=== PATIENT | male | born 1935 | race African-American/Black ===

== ENCOUNTER 2018-02-01 22:51 | Emergency (ER) | payer OTHER ==
[2018-02-01 23:32] VITALS: BP 152/75; PULSE 73; TEMP 98.2; BMI 27.2
--- NOTE | 2018-02-02 00:02 | PDOC ---
History of Present Illness - General History Source: Patient Exam Limitations: No Limitations - History of Present Illness Initial Comments: 02/02/18 00:11 The patient is an 82 year old male with a significant PMH of umbilical and inguinal hernias, HTN, diabetes, and hyperlipidemia who presents to the emergency department with abdominal pain and constipation beginning approximately 3 days ago. The patient notes his abdominal pain is diffuse with associated bloating and that he has not had a BM in 3 days. He also reports a minimal appetite with his symptoms. The patient denies recent travel or sick contacts. He denies chest pain or shortness of breath. The patient denies headache and dizziness. Denies fevers, chills, nausea, vomit, and diarrhea. Denies dysuria, frequency, urgency, and hematuria. <Amos Smith - Last Filed: 02/02/18 00:40> - General History Source: Patient <Reed Pedraza - Last Filed: 02/02/18 19:30> - General Chief Complaint: Pain Stated Complaint: PAIN Time Seen by Provider: 02/02/18 00:00 Past History <Amos Smith - Last Filed: 02/02/18 00:40> - Past Medical History COPD: No Diabetes: Yes GI Disorders: Yes (gerd) HTN: Yes Hypercholesterolemia: Yes - Surgical History Abdominal Surgery: Yes (HERNIA) - Immunization History Immunization Up to Date: Yes - Suicide/Smoking/Psychosocial Hx Smoking History: Former smoker Have you smoked in the past 12 months: No Information on smoking cessation initiated: No Hx Alcohol Use: No Drug/Substance Use Hx: No Substance Use Type: None <Reed Pedraza - Last Filed: 02/02/18 19:30> - Past Medical History Allergies/Adverse Reactions: Allergies Allergy/AdvReac Type Severity Reaction Status Date / Time lisinopril Allergy Severe FACE Verified 02/01/18 23:32 SWELLING Home Medications: Ambulatory Orders Aspirin [ASA -] 81 mg PO DAILY 11/07/13 Esomeprazole Mag Trihydrate [Nexium] 40 mg PO DAILY 11/07/13 Losartan Potassium [Cozaar -] 25 mg PO DAILY 11/07/13 Metoprolol Tartrate [Lopressor -] 50 mg PO DAILY 11/07/13 Simvastatin [Zocor] 80 mg PO DAILY 11/07/13 metFORMIN HCL [Glucophage -] 100 mg PO DAILY 11/07/13 Review of Systems - Review of Systems Able to Perform ROS?: Yes Comments:: 02/02/18 00:12 CONSTITUTIONAL: Absent: fever, chills, diaphoresis, generalized weakness, malaise, loss of appetite HEENT: Absent: rhinorrhea, nasal congestion, throat pain, throat swelling, difficulty swallowing, mouth swelling, ear pain, eye pain, visual Changes CARDIOVASCULAR: Absent: chest pain, syncope, palpitations, irregular heart rate, lightheadedness , peripheral edema RESPIRATORY: Absent: cough, shortness of breath, dyspnea with exertion, orthopnea, wheezing, stridor, hemoptysis GASTROINTESTINAL: (+) Diffuse abdominal pain. (+) Abdominal bloating. (+) Constipation. Absent:, nausea, vomiting, diarrhea, melena, hematochezia GENITOURINARY: Absent: dysuria, frequency, urgency, hesitancy, hematuria, flank pain, genital pain MUSCULOSKELETAL: Absent: myalgia, arthralgia, joint swelling SKIN: Absent: rash, itching, pallor HEMATOLOGIC/IMMUNOLOGIC: Absent: easy bleeding, easy bruising, lymphadenopathy, frequent infections ENDOCRINE: Absent: unexplained weight gain, unexplained weight loss, heat intolerance, cold intolerance NEUROLOGIC: Absent: headache, focal weakness or paresthesias, dizziness, unsteady gait, seizure, mental status changes, bladder or bowel incontinence PSYCHIATRIC: Absent: anxiety, depression, suicidal or homicidal ideation, hallucinations. <Amos Smith - Last Filed: 02/02/18 00:40> *Physical Exam - Vital Signs Last Vital Signs Temp Pulse Resp BP Pulse Ox 98.2 F 73 19 152/75 98 02/01/18 23:20 02/01/18 23:20 02/01/18 23:20 02/01/18 23:20 02/01/18 23:20 - Physical Exam Comments: 02/02/18 00:12 GENERAL: Well developed, well nourished. Awake and alert. No acute distress. HEENT: Normocephalic, atraumatic. PERRLA, EOMI. No conjunctival pallor. Sclera are non- icteric. Moist mucous membranes. Oropharynx is clear. NECK: Supple. Full ROM. No JVD. Carotid pulses 2+ and symmetric, without bruits. No thyromegaly. No lymphadenopathy. CARDIOVASCULAR: Regular rate and rhythm. No murmurs, rubs, or gallops. Distal pulses are 2+ and symmetric. PULMONARY: No evidence of respiratory distress. Lungs clear to auscultation bilaterally. No wheezing, rales or rhonchi. ABDOMINAL: Soft. Non-tender. Non-distended. No rebound or guarding. No organomegaly. Normoactive bowel sounds. MUSCULOSKELETAL Normal range of motion at all joints. No bony deformities or tenderness. No CVA tenderness. EXTREMITIES: No cyanosis. No clubbing. No edema. No calf tenderness. SKIN: Warm and dry. Normal capillary refill. No rashes. No jaundice. NEUROLOGICAL: Alert, awake, appropriate. Cranial nerves 2-12 intact. No deficits to light touch and temperature in face, upper extremities and lower extremities. No motor deficits in the in face, upper extremities and lower extremities. Normoreflexic in the upper and lower extremities. Normal speech. Toes are downgoing bilaterally. Gait is normal without ataxia. PSYCHIATRIC: Cooperative. Good eye contact. Appropriate mood and affect. <Amos Smith - Last Filed: 02/02/18 00:40> - Vital Signs Last Vital Signs Temp Pulse Resp BP Pulse Ox 98.2 F 73 19 152/75 98 02/01/18 23:20 02/01/18 23:20 02/01/18 23:20 02/01/18 23:20 02/01/18 23:20 <Reed Pedraza - Last Filed: 02/02/18 19:30> Heart Score/ECG Review #1 02/02/18 00:40 Vent rate 66 bpm Normal sinus rhythm Normal ECG <Amos Smith - Last Filed: 02/02/18 00:40> ED Treatment Course - LABORATORY CBC & Chemistry Diagram: 02/02/18 00:52 02/02/18 00:52 <Reed Pedraza - Last Filed: 02/02/18 19:30> Medical Decision Making - Medical Decision Making 02/02/18 19:30 Dr. Pedraza: The scribe's documentation has been prepared under my direction and personally reviewed by me in its entirery. I confirm that the note above accurately reflects all work, treatment, procedures, and medical decision making performed by me. <Reed Pedraza - Last Filed: 02/02/18 19:30> *DC/Admit/Observation/Transfer - Attestations Scribe Attestion: 02/02/18 00:12 Documentation prepared by Amos Smith, acting as durable medical equipment technician for Reed Pedraza DO. <Amos Smith - Last Filed: 02/02/18 00:40> - Discharge Dispostion Admit: No <Reed Pedraza - Last Filed: 02/02/18 19:30> Diagnosis at time of Disposition: Constipation Qualifiers: Constipation type: other constipation type Qualified Code(s): K59.09 - Other constipation - Discharge Dispostion Disposition: HOME Condition at time of disposition: Stable - Referrals Referrals: Gareth Savage MD [Primary Care Provider] - - Patient Instructions Printed Discharge Instructions: Increased Dietary Fiber May Improve Constipation Conditions With Pelvic Ori, DI for Constipation Additional Instructions: drink plenty of fluids. Purchase and use Fleet enema periodically to help pass stool. Follow up with your doctor
[2018-02-02] MEDS ORDERED: SODIUM CHLORIDE 1,000 ML IV STA (00:03)
[2018-02-02 01:12] LABS: BASO % 1.4 % (0-2.0); EOS % 6.9 % (0-4.5); HEMATOCRIT 39.5 % (35.4-49); HEMOGLOBIN 13.4 GM/dL (11.7-16.9); MCH 28.3 pg (25.7-33.7); MCHC 34.1 g/dl (32.0-35.9); MEAN CELL VOLUME 82.9 fl (80-96); MEAN PLT VOLUME 8.4 fl (7.5-11.1); MONO % 8.6 % (3.8-10.2); NEUT % 38.1 % (42.8-82.8); PLATELET COUNT 222 K/MM3 (134-434); RBC 4.76 M/mm3 (4.00-5.60); RDW 15.2 % (11.9-15.9); WHITE BLOOD COUNT 6.2 K/mm3 (4.0-10.0)
[2018-02-02 01:33] LABS: ANION GAP 12 (8-16); BLOOD UREA NITROGEN 14 mg/dL (7-18); CALCIUM 8.8 mg/dL (8.5-10.1); CHLORIDE 102 mmol/L (98-107); CO2 23 mmol/L (21-32); GLUCOSE,RANDOM 95 mg/dL (74-106); MAGNESIUM 2.2 mg/dL (1.8-2.4); POTASSIUM 4.1 mmol/L (3.5-5.1); SGOT/AST 19 U/L (15-37); SGPT/ALT 22 U/L (12-78); SODIUM 137 mmol/L (136-145)
[2018-02-02 01:34] LABS: N-TERMINAL BNP 45.64 pg/ml (5-450)
[2018-02-02 01:37] LABS: INR 1.03 (0.82-1.09); PROTHROMBIN TIME (PATIENT) 11.6 SEC (9.98-11.88)
[2018-02-02 01:38] LABS: ALK PHOS 77 U/L (45-117); BILIRUBIN,TOTAL 0.7 mg/dL (0.2-1.0)
[2018-02-02] MEDS ORDERED: LACTULOSE 20 GM/30 ML UDC (FOR ORAL USE ONLY) PO ONE (01:41)
[2018-02-02] MEDS ORDERED: LACTULOSE 20 GM/30 ML UDC (FOR ORAL USE ONLY) ONE (01:52)
--- NOTE | 2018-02-02 16:38 | EKG ---
Test Reason : Blood Pressure : / mmHG Vent. Rate : 066 BPM Atrial Rate : 066 BPM P-R Int : 174 ms QRS Dur : 094 ms QT Int : 394 ms P-R-T Axes : 080 -28 -05 degrees QTc Int : 413 ms NORMAL SINUS RHYTHM NORMAL ECG WHEN COMPARED WITH ECG OF 06-JAN-2016 13:20, NO SIGNIFICANT CHANGE WAS FOUND Confirmed by SERGIO WYNN MD ([id number]) on 02/02/2018 4:38:34 PM Referred By: Confirmed By:SERGIO WYNN MD
== END 2018-02-02 01:55 | disposition home or self-care (01) ==
LOC: JER 22:51
DX: K59.09 Other constipation (principal); E11.9 Type 2 diabetes mellitus without complications; I10 Essential (primary) hypertension; E78.00 Pure hypercholesterolemia, unspecified; K21.9 Gastro-esophageal reflux disease without esophagitis
CPT/HCPCS: 36415; 74019-TC-FY; 80053; 82550; 83690; 83735; 83880; 84484; 85025; 85610; 93005; 93010; 99281-25

== ENCOUNTER 2020-06-03 10:37 | Emergency (ER) | payer OTHER ==
--- NOTE | 2020-06-03 10:48 | PDOC ---
History of Present Illness - General Chief Complaint: Urinary Problem Stated Complaint: Urinary Problem Time Seen by Provider: 06/03/20 10:41 History Source: Patient - History of Present Illness Initial Comments: 84 YOM h/o HTN and diabetes presents with complaints of decreased frequency and duration of urination. Patient reports that he normally urinates 3 times per day and 3 times per night, observing "heavy flow". However since 3 days ago, he is unable to urinate more than 5 seconds at a time, sometimes experiencing dribbling and when he wakes up at night to use the bathroom, he produces little if any urine. He also mentions some minor abdominal pain in the LRQ which is exacerbated with attempting to urine as well as some minor burning sensation that accompanies urinating. He denies discharge, increased urge to urinate, or a feeling of a persistently full bladder. He also denies fever, chills, N/V/D, CP or SOB. Past History - Medical History Allergies/Adverse Reactions: Allergies Allergy/AdvReac Type Severity Reaction Status Date / Time lisinopril Allergy Severe FACE Verified 02/01/18 23:32 SWELLING Home Medications: Ambulatory Orders Aspirin [ASA -] 81 mg PO DAILY 11/07/13 Esomeprazole Mag Trihydrate [Nexium] 40 mg PO DAILY 11/07/13 Losartan Potassium [Cozaar -] 25 mg PO DAILY 11/07/13 Metoprolol Tartrate [Lopressor -] 50 mg PO DAILY 11/07/13 Simvastatin [Zocor] 80 mg PO DAILY 11/07/13 metFORMIN HCL [Glucophage -] 100 mg PO DAILY 11/07/13 COPD: No Diabetes: Yes GI Disorders: Yes (gerd) HTN: Yes Hypercholesterolemia: Yes - Surgical History Abdominal Surgery: Yes (HERNIA) - Immunization History Immunization Up to Date: Yes - Psycho-Social/Smoking History Smoking History: Former smoker Have you smoked in the past 12 months: No Review of Systems - Review of Systems Constitutional: Yes: See HPI HEENTM: Yes: See HPI, Difficulty Swallowing Cardiac (ROS): Yes: See HPI ABD/GI: Yes: See HPI : Yes: See HPI Musculoskeletal: Yes: See HPI Integumentary: Yes: See HPI Neurological: Yes: See HPI Endocrine: Yes: See HPI Hematologic/Lymphatic: Yes: See HPI *Physical Exam - Vital Signs Last Vital Signs Temp Pulse Resp BP Pulse Ox 97.2 F L 72 17 145/70 99 06/03/20 10:45 06/03/20 10:45 06/03/20 10:45 06/03/20 10:45 06/03/20 10:45 - Physical Exam General Appearance: Yes: Nourished, Appropriately Dressed Respiratory/Chest: positive: Lungs Clear, Normal Breath Sounds Cardiovascular: positive: Regular Rhythm, Regular Rate, S1, S2 Gastrointestinal/Abdominal: positive: Normal Bowel Sounds, Flat, Soft Medical Decision Making - Medical Decision Making 84 YOM h/o HTN and diabetes presents with complaints of decreased frequency and duration of urination as well as some minor burning and abdominal pain with urinating. He denies discharge, increased urge to urinate, or a feeling of a persistently full bladder. He also denies fever, chills, N/V/D, CP or SOB. Vitals were stable on arrival, exam wnl. ddx includes but is not limited to urinary retention and urinary tract infection. plan: UA with UC and post void bladder scan. Reassess: UA wnl, post void bladder scan not revealing of significant volume of retained urine. dispo: will dc patient to home with return precautions and instructions to follow up with urologist for h/o regular night time awakenings to urinate. Discharge - Discharge Information Problems reviewed: Yes Clinical Impression/Diagnosis: Urinary urgency Condition: Good Disposition: HOME - Admission No - Follow up/Referral Referrals: Riley Page MD [Primary Care Provider] - Forest Hair MD [Non Staff, Medical] - Robert Duffy MD [Staff Physician] - Riley Carranza MD [Staff Physician] - Arthur Hernandez MD [Staff Physician] - - Patient Discharge Instructions Patient Printed Discharge Instructions: DI for Urinary Retention in Men Additional Instructions: You were seen in the Emergency Department because you believed you were urinating less than normally. You were able to produce urine in the emergency department for laboratory testing. You received urinalysis, the results of which were normal. You also received an Ultrasound Scan of your bladder after you urinated which showed that you were not retaining urine. You were considered medically stable and safe to return home. Please follow up as an outpatient with primary care and urology. We have included 4 suggestions for urologists that you can follow up with. Please return to the emergency department if you have fever, increased pain, or blood in your urine. Additionally, please return if you have chest pain, shortness of breath, nausea or vomiting. - Post Discharge Activity
--- NOTE | 2020-06-03 10:53 | PDOC ---
Rapid Medical Evaluation Chief Complaint: Urinary Problem Time Seen by Provider: 06/03/20 10:41 Medical Evaluation: Allergies Allergy/AdvReac Type Severity Reaction Status Date / Time lisinopril Allergy Severe FACE Verified 02/01/18 23:32 SWELLING 06/03/20 10:47 CC: urinary retention with dribbling since yesterday, hx prostate cancer with prostectomy, no abd tenderness or back pain,. no hematuria or fever Exam: vss, no cva tenderness, no abd tenderness Plan: urine, rush, and u/s (r/o mass) . pt's PMD is closed indefinitely Discharge Disposition - Diagnosis Urinary retention - Referrals Referrals: Riley Page MD [Primary Care Provider] - - Patient Instructions - Post Discharge Activity
[2020-06-03 10:54] VITALS: BP 145/70; PULSE 72; TEMP 97.2; BMI 25.8
[2020-06-03 11:43] LABS: PH,URINE 5.5 (5.0-8.0); URINE APPEARANCE CLEAR; URINE BILIRUBIN NEGATIVE (NEGATIVE); URINE COLOR YELLOW; URINE GLUCOSE (UA) NEGATIVE (NEGATIVE); URINE KETONE NEGATIVE (NEGATIVE); URINE LEUK ESTERASE NEGATIVE (NEGATIVE); URINE NITRITE NEGATIVE (NEGATIVE); URINE PROTEIN NEGATIVE (NEGATIVE); URINE UROBILINOGEN 0.2 mg/dL (0.2-1.0)
--- NOTE | 2020-06-03 12:53 | PDOC ---
Attending Attestation - Resident Resident Name: Paco Lam - ED Attending Attestation I have performed the following: I have examined & evaluated the patient, The case was reviewed & discussed with the resident, I agree w/resident's findings & plan - HPI HPI: 06/03/20 12:50 84y/o M h/o prostatectomy p/w sensation of incomplete bladder empyting. no f/c/abd pain/flank pain/n/v. - Physicial Exam PE: 06/03/20 12:51 vss alert, nad comfortable abd benign, no distended bladder, no cvat no edema - Medical Decision Making 06/03/20 12:51 84y/o M h/o prostatectomy with possible urinary retention. after arrival pt urinated clear urine, post-void u/s negative for fluid in bladder UA clear feels well, will give urology referral Discharge - Discharge Information Problems reviewed: Yes Clinical Impression/Diagnosis: Urinary urgency Condition: Good Disposition: HOME - Follow up/Referral Referrals: Arthur Hernandez MD [Staff Physician] - Robert Duffy MD [Staff Physician] - Riley Carranza MD [Staff Physician] - Riley Page MD [Primary Care Provider] - Forest Hair MD [Non Staff, Medical] - - Patient Discharge Instructions Patient Printed Discharge Instructions: DI for Urinary Retention in Men Additional Instructions: You were seen in the Emergency Department because you believed you were ur inating less than normally. You were able to produce urine in the emergency department for laboratory testing. You received urinalysis, the results of which were normal. You also received an Ultrasound Scan of your bladder after you urinated which showed that you were not retaining urine. You were considered medically stable and safe to return home. Please follow up as an outpatient with primary care and urology. We have included 4 suggestions for urologists that you can follow up with. Please return to the emergency department if you have fever, increased pain, or blood in your urine. Additionally, please return if you have chest pain, shortness of breath, nausea or vomiting. - Post Discharge Activity
== END 2020-06-03 13:00 | disposition home or self-care (01) ==
LOC: JER 10:37
DX: R35.0 Frequency of micturition (principal)
CPT/HCPCS: 81003; 87086; 99283-25

== ENCOUNTER 2020-11-26 12:07 | Emergency (ER) | payer OTHER ==
[2020-11-26] MEDS ORDERED: SODIUM CHLORIDE 1,000 ML IV STA (13:29)
[2020-11-26] MEDS ORDERED: ACETAMINOPHEN 1000 MG/100 ML BAG IVPB ONE (13:33)
[2020-11-26] MEDS ORDERED: FAMOTIDINE 20 MG/50 ML IVPB 20 MG/50 ML MG IVPB ONE ×2 (13:33→13:35)
[2020-11-26] MEDS ORDERED: ACETAMINOPHEN INJECTION 100 ML IVPB ONE (13:35)
[2020-11-26 14:28] LABS: CHLORIDE 101 mmol/L (98-107); SODIUM 132 mmol/L (136-145)
[2020-11-26 14:31] LABS: ANION GAP 4 MMOL/L (8-16); CALCIUM 8.8 mg/dL (8.5-10.1); CO2 27 mmol/L (21-32)
[2020-11-26 14:32] LABS: BLOOD UREA NITROGEN 9.1 mg/dL (7-18); GLUCOSE,RANDOM 100 mg/dL (74-106); MAGNESIUM 2.3 mg/dL (1.8-2.4)
[2020-11-26 14:34] LABS: SGOT/AST 16 U/L (15-37); SGPT/ALT 19 U/L (13-61)
[2020-11-26 14:35] LABS: PHOSPHOROUS 3.4 mg/dL (2.5-4.9)
[2020-11-26 14:36] VITALS: TEMP 98.3
[2020-11-26 14:36] LABS: TOT PROT 7.1 g/dl (6.4-8.2)
[2020-11-26 14:37] LABS: ALK PHOS 126 U/L (45-117)
[2020-11-26 14:38] LABS: LDH 143 U/L (87-246)
[2020-11-26 14:41] LABS: BASO % 0.8 % (0-2.0); EOS % 3.4 % (0-4.5); HEMATOCRIT 36.4 % (35.4-49); HEMOGLOBIN 12.3 GM/dL (11.7-16.9); LYMPH % 37.5 % (8-40); MCH 27.2 pg (25.7-33.7); MCHC 33.6 g/dl (32.0-35.9); MEAN CELL VOLUME 80.8 fl (80-96); MEAN PLT VOLUME 8.5 fl (7.5-11.1); MONO % 8.9 % (3.8-10.2); NEUT % 49.4 % (42.8-82.8); PLATELET COUNT 231 K/MM3 (134-434); RBC 4.51 M/mm3 (4.00-5.60); RDW 17.5 % (11.9-15.9); WHITE BLOOD COUNT 5.1 K/mm3 (4.0-10.0)
[2020-11-26 14:50] LABS: BILIRUBIN,TOTAL 0.6 mg/dL (0.2-1); LIPASE 106 U/L (73-393)
[2020-11-26 17:58] VITALS: BP 140/81; PULSE 68
[2020-11-26 18:00] LABS: URINE APPEARANCE CLEAR; URINE BILIRUBIN NEGATIVE (NEGATIVE); URINE COLOR YELLOW; URINE GLUCOSE (UA) NEGATIVE (NEGATIVE); URINE KETONE NEGATIVE (NEGATIVE); URINE LEUK ESTERASE NEGATIVE (NEGATIVE); URINE NITRITE NEGATIVE (NEGATIVE); URINE PROTEIN NEGATIVE (NEGATIVE); URINE UROBILINOGEN 0.2 mg/dL (0.2-1.0)
== END 2020-11-26 18:51 | disposition home or self-care (01) ==
LOC: JER 12:07
DX: U07.1 COVID-19 (principal); R10.32 Left lower quadrant pain
CPT/HCPCS: 36415; 74177-TC; 80053; 81003; 82728; 83605; 83615; 83690; 83735; 84100; 85025; 85651; 86140; 87086; 99282-25; J0131; Q9967

== ENCOUNTER 2023-01-21 06:19 | Day surgery (SDC) | payer OTHER ==
[2023-01-21 07:21] VITALS: BMI 28.3
[2023-01-21] MEDS ORDERED: LIDOCAINE HCL/PF 2% SDV 5ML VIAL ONE (07:45)
[2023-01-21] MEDS ORDERED: PROPOFOL 120 ML ONE (07:46)
[2023-01-21 09:10] VITALS: RESP 16; TEMP 97.6
[2023-01-21 09:26] VITALS: BP 133/95; PULSE 68
== END 2023-01-21 10:20 | disposition home or self-care (01) ==
LOC: FASU-ENDO 06:19
PROVIDERS: ATTEND Internal Medicine Gastroenterology
PROC: 0DB68ZX Excision of Stomach, Via Natural or Artificial Opening Endoscopic, Diagnostic (ICD-10-PCS; 2023-01-21)
PROC: 0DB48ZX Excision of Esophagogastric Junction, Via Natural or Artificial Opening Endoscopic, Diagnostic (ICD-10-PCS; 2023-01-21)
PROC: 0DB98ZX Excision of Duodenum, Via Natural or Artificial Opening Endoscopic, Diagnostic (ICD-10-PCS; principal; 2023-01-21 08:46)
DX: K29.50 Unspecified chronic gastritis without bleeding (principal); K21.00 Gastro-esophageal reflux disease with esophagitis, without bleeding; R10.13 Epigastric pain
CPT/HCPCS: 82962; 88305-TC; 88342-TC

== ENCOUNTER 2023-12-12 08:28 | Emergency (ER) | payer OTHER ==
[2023-12-12 08:34] VITALS: RESP 18; BMI 27.2
[2023-12-12 09:40] LABS: BASO % 1.2 % (0-2.0); EOS % 3.2 % (0-4.5); HEMATOCRIT 34.9 % (35.4-49); HEMOGLOBIN 11.8 GM/dL (11.7-16.9); LYMPH % 33.8 % (8-40); MCH 27.1 pg (25.7-33.7); MCHC 33.8 g/dl (32.0-35.9); MEAN CELL VOLUME 80.1 fl (80-96); MEAN PLT VOLUME 8.3 fl (7.5-11.1); MONO % 9.8 % (3.8-10.2); PLATELET COUNT 233 10^3/uL (134-434); RBC 4.36 M/mm3 (4.00-5.60); RDW 17.7 % (11.9-15.9); WHITE BLOOD COUNT 6.3 K/mm3 (4.0-10.0)
[2023-12-12 09:55] LABS: INR 1.11 (0.83-1.09); PROTHROMBIN TIME (PATIENT) 12.9 SEC (9.7-13.0)
[2023-12-12 09:58] LABS: ACTIVATED PTT 28.5 SECONDS (25.2-36.5)
[2023-12-12 10:03] LABS: POTASSIUM 4.5 mmol/L (3.5-5.1)
[2023-12-12 10:05] LABS: CALCIUM 8.9 mg/dL (8.5-10.1)
[2023-12-12 10:06] LABS: ALBUMIN 3.6 g/dl (3.4-5.0); BLOOD UREA NITROGEN 12.5 mg/dL (7-18); MAGNESIUM 1.8 mg/dL (1.8-2.4)
[2023-12-12 10:08] LABS: PHOSPHOROUS 3.2 mg/dL (2.5-4.9)
[2023-12-12 10:10] LABS: BILIRUBIN,TOTAL 0.6 mg/dL (0.2-1); TOT PROT 6.8 g/dl (6.4-8.2)
[2023-12-12 13:22] VITALS: BP 146/72; PULSE 95; TEMP 98.3
== END 2023-12-12 13:23 | disposition home or self-care (01) ==
LOC: JER 08:28
DX: K62.5 Hemorrhage of anus and rectum (principal); Z20.822 Contact with and (suspected) exposure to COVID-19
CPT/HCPCS: 0241U-QW; 36415; 71045-TC-FY; 74177-TC; 80053; 82272; 83605; 83735; 84100; 85025; 85610; 85730; 86850; 86900; 86901; 93005; 93010; 99285-25

== ENCOUNTER 2024-05-21 00:16 | Emergency (ER) | payer OTHER ==
[2024-05-21 00:21] VITALS: RESP 19; TEMP 98; BMI 27.2
[2024-05-21] MEDS ORDERED: MAG HYDROX/AL HYDROX/SIMETH 30 ML UNIT-DOSE CUP ONE (02:10)
[2024-05-21] MEDS ORDERED: FAMOTIDINE 20 MG/50 ML IVPB 20 MG/50 ML MG IVPB ONE (02:10)
[2024-05-21] MEDS ORDERED: ACETAMINOPHEN INJECTION 100 ML IVPB ONE (02:10)
[2024-05-21] MEDS: MAG HYDROX/AL HYDROX/SIMETH -MYLANTA- ORAL SUSPENSION PO ONE (02:46)
[2024-05-21] MEDS: SODIUM CHLORIDE 0.9% 500 ML INFUS.BAG IV ONE (02:46)
[2024-05-21] MEDS: ACETAMINOPHEN 1000 MG/100 ML BAG IVPB ONE (02:47)
[2024-05-21] MEDS: FAMOTIDINE 20 MG/50 ML IVPB 20 MG/50 ML MG IVPB ONE (02:47)
[2024-05-21 02:51] LABS: BASO % 1.7 % (0-2.0); EOS % 3.4 % (0-4.5); HEMATOCRIT 31.2 % (35.4-49); HEMOGLOBIN 10.4 GM/dL (11.7-16.9); LYMPH % 44.9 % (8-40); MCH 23.2 pg (25.7-33.7); MCHC 33.2 g/dl (32.0-35.9); MEAN CELL VOLUME 69.7 fl (80-96); MEAN PLT VOLUME 8.6 fl (7.5-11.1); MONO % 7.8 % (3.8-10.2); NEUT % 42.2 % (42.8-82.8); PLATELET COUNT 257 10^3/uL (134-434); RBC 4.47 M/mm3 (4.00-5.60); RDW 22.9 % (11.9-15.9); WHITE BLOOD COUNT 5.8 K/mm3 (4.0-10.0)
[2024-05-21 02:54] LABS: URINE APPEARANCE CLEAR; URINE BILIRUBIN NEGATIVE (NEGATIVE); URINE COLOR YELLOW; URINE GLUCOSE (UA) NEGATIVE (NEGATIVE); URINE KETONE NEGATIVE (NEGATIVE); URINE LEUK ESTERASE NEGATIVE (NEGATIVE); URINE NITRITE NEGATIVE (NEGATIVE); URINE PROTEIN NEGATIVE (NEGATIVE); URINE UROBILINOGEN 0.2 mg/dL (0.2-1.0)
[2024-05-21 03:14] LABS: POTASSIUM 4.2 mmol/L (3.5-5.1)
[2024-05-21 03:16] LABS: CALCIUM 8.6 mg/dL (8.5-10.1)
[2024-05-21 03:17] LABS: ALBUMIN 3.9 g/dl (3.4-5.0); BLOOD UREA NITROGEN 9.2 mg/dL (7-18)
[2024-05-21 03:21] LABS: BILIRUBIN,TOTAL 0.4 mg/dL (0.2-1)
[2024-05-21 03:22] LABS: TOT PROT 7.1 g/dl (6.4-8.2)
[2024-05-21] MEDS ORDERED: PANTOPRAZOLE SODIUM 40 MG/100 ML BAG IVPB ONE (05:20)
[2024-05-21] MEDS: PANTOPRAZOLE SODIUM 40 MG VIAL IVPUSH ONE (05:32)
[2024-05-21 05:33] VITALS: BP 150/74; PULSE 82
[2024-05-21 06:17] LABS: ANISOCYTOSIS 2+; MACROCYTOSIS 1+; TARGET CELLS 1+; TEAR DROP CELLS 1+
== END 2024-05-21 06:05 | disposition home or self-care (01) ==
LOC: JER 00:16
PROC: 3E033GC Introduction of Other Therapeutic Substance into Peripheral Vein, Percutaneous Approach (ICD-10-PCS; principal; 2024-05-21)
PROC: 3E033GC Introduction of Other Therapeutic Substance into Peripheral Vein, Percutaneous Approach (ICD-10-PCS; 2024-05-21)
PROC: 3E033NZ Introduction of Analgesics, Hypnotics, Sedatives into Peripheral Vein, Percutaneous Approach (ICD-10-PCS; 2024-05-21)
DX: R10.33 Periumbilical pain (principal); K29.50 Unspecified chronic gastritis without bleeding; K59.00 Constipation, unspecified
CPT/HCPCS: 36415; 74177-TC; 80053; 81003; 83605; 83690; 85025; 87086; 93005; 93010; 99285-25; J0131; Q9967

== ENCOUNTER → 2024-07-12 | Day surgery (SDC) | payer OTHER | END | disposition home or self-care (01) | LOC: JRADIR 10:31 | PROVIDERS: ATTEND Internal Medicine Endocrinology, Diabetes & Metabolism | PROC: 0G9G3ZX Drainage of Left Thyroid Gland Lobe, Percutaneous Approach, Diagnostic (ICD-10-PCS; principal; 2024-07-12) | DX: E04.1 Nontoxic single thyroid nodule (principal) | CPT/HCPCS: 10005; 76942; 88173; 88305-TC ==

== ENCOUNTER 2024-11-15 10:44 | Emergency (ER) | payer OTHER ==
[2024-11-15 11:18] VITALS: TEMP 98.1; BMI 27.2
[2024-11-15 12:34] LABS: HEMATOCRIT 33.1 % (35.4-49); HEMOGLOBIN 10.3 GM/dL (11.7-16.9); MCH 21.4 pg (25.7-33.7); MCHC 31.2 g/dl (32.0-35.9); MEAN CELL VOLUME 68.6 fl (80-96); MEAN PLT VOLUME 8.5 fl (7.5-11.1); PLATELET COUNT 270 10^3/uL (134-434); RBC 4.82 M/mm3 (4.00-5.60); RDW 23.1 % (11.9-15.9); WHITE BLOOD COUNT 5.1 K/mm3 (4.0-10.0)
[2024-11-15] MEDS ORDERED: ASPIRIN 325 MG TABLET ONE ×2 (12:34→12:35)
[2024-11-15 12:36] LABS: INR 0.96 (0.83-1.09); PROTHROMBIN TIME (PATIENT) 11.1 SEC (9.7-13.0)
[2024-11-15 12:39] LABS: ACTIVATED PTT 21.9 SECONDS (25.2-36.5)
[2024-11-15 12:56] LABS: POTASSIUM 4.3 mmol/L (3.5-5.1)
[2024-11-15 12:58] LABS: ALBUMIN 4.2 g/dl (3.4-5.0); BLOOD UREA NITROGEN 13.8 mg/dL (7-18)
[2024-11-15 12:59] LABS: MAGNESIUM 2.1 mg/dL (1.8-2.4)
[2024-11-15 13:02] LABS: CREATININE 1.1 mg/dL (0.55-1.3)
[2024-11-15] MEDS: ASPIRIN 325 MG TABLET PO ONE (13:03)
[2024-11-15 13:04] LABS: BILIRUBIN,TOTAL 0.5 mg/dL (0.2-1); TOT PROT 7.4 g/dl (6.4-8.2)
[2024-11-15 13:12] LABS: ANISOCYTOSIS 2+; MACROCYTOSIS 0
[2024-11-15 13:53] LABS: HIV INTERPRETATION NEGATIVE (NEGATIVE)
[2024-11-15 16:30] VITALS: BP 139/76; PULSE 80; RESP 18
== END 2024-11-15 16:47 | disposition home or self-care (01) ==
LOC: JER 10:44
DX: R07.9 Chest pain, unspecified (principal); R29.898 Other symptoms and signs involving the musculoskeletal system
CPT/HCPCS: 36415; 71045-TC-FY; 80053; 82550; 83735; 84484; 85025; 85610; 85730; 86803; 87389; 93005; 93010; 99285-25